=== PATIENT | male | born 1950 | race Caucasian/White ===

== ENCOUNTER 2019-04-24 15:08 | Emergency (ER) | payer MEDICARE, OTHER ==
[2019-04-24] MEDS ORDERED: SODIUM CHLORIDE 0.9% 1,000 ML IV ONE (16:01)
--- NOTE | 2019-04-24 16:17 | ED Physician Documentation ---
History of Present Illness - Stated complaint Stated Complaint: MALE /ABD PX - Chief complaint Chief Complaint: Abd Pain - History obtained from History obtained from: Patient - History of Present Illness Timing: Today Pain level max: 4 Pain level now: 3 - Additonal information Additional information: nausea, vomiting and diarrhea since last night. ate turkey sandwich last night. States nausea and vomiting has subsided. Had bright red blood in the stool. States has left-sided abdominal pain now. Nothing makes it better or worse. No fevers. No recent travel. No recent antibiotics. Has never had similar symptoms. Review of Systems Constitutional: denies: Fever, Chills Cardiac: denies: Chest pain / pressure Respiratory: denies: Cough GI: denies: Nausea, Vomiting, Diarrhea Skin: denies: Rash Musculoskeletal: denies: Neck pain, Back pain Neurologic: denies: Headache PD PAST MEDICAL HISTORY - Past Medical History Cardiovascular: Hypertension, High cholesterol Respiratory: COPD, Emphysema - Past Surgical History Past Surgical History: Yes - Present Medications Home Medications: Ambulatory Orders Medication Instructions Recorded Confirmed Amlodipine Besylate/Benazepril 1 cap PO DAILY 02/05/15 02/05/15 [Lotrel 5-20 mg Capsule] Aspirin [Aspir-Low] 81 mg PO DAILY 02/05/15 02/05/15 Cetirizine [ZyrTEC] 10 mg PO DAILY 02/05/15 02/05/15 Fluticasone/Salmeterol [Advair 2 puffs IH Q4HR PRN 02/05/15 02/05/15 100-50 Diskus] Tiotropium [Spiriva] 02/05/15 02/05/15 Amox/Clav 875/125 [Augmentin] 1 each PO Q12H #20 tablet 04/24/19 Ondansetron Odt [Zofran] 4 mg TL Q6H PRN #10 tablet 04/24/19 - Allergies Allergies/Adverse Reactions: Allergies Allergy/AdvReac Type Severity Reaction Status Date / Time acetaminophen [From Vicodin] Allergy Intermediate Itching Verified 04/24/19 15:13 hydrocodone bitartrate * Allergy Intermediate Itching Verified 04/24/19 15:13 [From Vicodin] - Social History Does the pt smoke?: Yes Smoking Status: Current every day smoker Does the pt drink ETOH?: Yes Does the pt have substance abuse?: No - Immunizations Immunizations are current?: Yes - POLST Patient has POLST: No PD ED PE NORMAL - Vitals Vital signs reviewed: Yes - General General: Alert and oriented X 3, No acute distress - HEENT HEENT: Moist mucous membranes - Neck Neck: Supple, no meningeal sign - Cardiac Cardiac: RRR - Respiratory Respiratory: No respiratory distress, Clear bilaterally - Abdomen Abdomen: Soft, Non distended, Other (Mild tenderness to palpation on the left side of the abdomen. No peritoneal signs.) - Male Male : Pt declined - Back Back: No spinal TTP - Derm Derm: Warm and dry - Extremities Extremities: No edema - Neuro Neuro: Alert and oriented X 3 - Psych Psych: Normal mood, Normal affect Results - Vitals Vitals: Vital Signs - 24 hr 04/24/19 04/24/19 15:13 17:18 Temperature 36.9 C Heart Rate 98 78 Respiratory 16 16 Rate Blood Pressure 138/83 H 149/80 H O2 Saturation 96 95 Oxygen O2 Source Room air - Labs Labs: Laboratory Tests 04/24/19 04/24/19 04/24/19 16:20 16:20 16:20 WBC 15.3 H RBC 5.37 Hgb 17.3 Hct 49.5 MCV 92.2 MCH 32.2 H MCHC 34.9 RDW 12.8 Plt Count 234 MPV 9.9 Neut # (Auto) 12.7 H Lymph # (Auto) 1.6 Moody # (Auto) 0.9 Eos # (Auto) 0.0 Baso # (Auto) 0.0 Absolute Nucleated RBC 0.00 Nucleated RBC % 0.0 PT INR APTT Sodium 138 Potassium 3.9 Chloride 103 Carbon Dioxide 25 Anion Gap 10.0 BUN 23 H Creatinine 0.9 Estimated GFR (MDRD) 84 L Glucose 103 H Calcium 9.3 Total Bilirubin 1.6 H AST 28 ALT 41 Alkaline Phosphatase 53 Total Protein 7.8 Albumin 4.8 Globulin 3.0 Albumin/Globulin Ratio 1.6 Lipase 26 Urine Color Urine Clarity Urine pH Ur Specific [place] Urine Protein Urine Glucose (UA) Urine Ketones Urine Occult Blood Urine Nitrite Urine Bilirubin Urine Urobilinogen Ur Leukocyte Esterase Ur Microscopic Review Urine Culture Comments Blood Type A POSITIVE Antibody Screen NEGATIVE 04/24/19 04/24/19 16:20 17:15 WBC RBC Hgb Hct MCV MCH MCHC RDW Plt Count MPV Neut # (Auto) Lymph # (Auto) Moody # (Auto) Eos # (Auto) Baso # (Auto) Absolute Nucleated RBC Nucleated RBC % PT 13.0 H INR 1.2 APTT 35.5 H Sodium Potassium Chloride Carbon Dioxide Anion Gap BUN Creatinine Estimated GFR (MDRD) Glucose Calcium Total Bilirubin AST ALT Alkaline Phosphatase Total Protein Albumin Globulin Albumin/Globulin Ratio Lipase Urine Color YELLOW Urine Clarity CLEAR Urine pH 6.0 Ur Specific [place] 1.010 Urine Protein NEGATIVE Urine Glucose (UA) NEGATIVE Urine Ketones 15 H Urine Occult Blood NEGATIVE Urine Nitrite NEGATIVE Urine Bilirubin NEGATIVE Urine Urobilinogen 0.2 (NORMAL) Ur Leukocyte Esterase NEGATIVE Ur Microscopic Review NOT INDICATED Urine Culture Comments NOT INDICATED Blood Type Antibody Screen - Rads (name of study) CT abdomen pelvis Radiology: Prelim report reviewed, EMP read contemporaneously, See rad report (1. Wall thickening with surrounding fat stranding involving the splenic flexure and the majority of the descending colon consistent with colitis. This may be of inflammatory or infectious etiology. 2. No other acute findings in the abdomen or pelvis. 3. Hepatic steatosis. ) PD MEDICAL DECISION MAKING - ED course Complexity details: reviewed results, re-evaluated patient, considered differential, d/w patient ED course: 69-year-old male appears to have colitis on his CT scan. Will place on antibiotics. He is well-appearing, nontoxic. Afebrile. No significant anemia. Patient counseled regarding signs and symptoms for which I believe and urgent re-evaluation would be necessary. Patient with good understanding of and agreement to plan and is comfortable going home at this time This document was made in part using voice recognition software. While efforts are made to proofread this document, sound alike and grammatical errors may occur. Departure - Departure Disposition: 01 Home, Self Care Clinical Impression: Colitis Condition: Good Instructions: ED Diverticulitis Follow-Up: your,doctor in 1 week [Other] Prescriptions: Amox/Clav 875/125 [Augmentin] 1 each PO Q12H #20 tablet Ondansetron Odt [Zofran] 4 mg TL Q6H PRN #10 tablet PRN Reason: Nausea / Vomiting Comments: You appear to have an infectious colitis today. Take all antibiotics until gone. Return if you worsen. You should start to improve over the next 24 to 48 hours. Discharge Date/Time: 04/24/19 18:02
[2019-04-24] MEDS ORDERED: IOVERSOL 320 100 ML VIAL IVP ONE ×2 (16:23→17:08)
[2019-04-24 16:26] LABS: BASOPHILS % (AUTO) 0.3 %; EOSINOPHILS % (AUTO) 0.1 %; HGB - HEMOGLOBIN 17.3 g/dL (14.0-18.0); LYMPHOCYTES # (AUTO) 1.6 10^3/uL (1.5-3.5); LYMPHOCYTES % (AUTO) 10.5 %; MEAN CORPUSCULAR HEMOGLOBIN 32.2 pg (27.0-31.0); MEAN CORPUSCULAR HGB CONC 34.9 g/dL (32.0-36.0); MEAN CORPUSCULAR VOLUME 92.2 fL (80.0-94.0); MEAN PLATELET VOLUME 9.9 fL (7.4-11.4); MONOCYTES # (AUTO) 0.9 10^3/uL (0.0-1.0); MONOCYTES % (AUTO) 5.9 %; NEUTROPHILS # (AUTO) 12.7 10^3/uL (1.5-6.6); NEUTROPHILS % (AUTO) 82.7 %; PLT - PLATELET COUNT 234 10^3/uL (130-450); RED BLOOD COUNT 5.37 10^6/uL (4.70-6.10); RED CELL DISTRIBUTION WIDTH 12.8 % (12.0-15.0); WHITE BLOOD COUNT 15.3 x10^3/uL (4.8-10.8)
[2019-04-24 16:32] LABS: INR 1.2 (0.8-1.2)
[2019-04-24 16:39] LABS: PARTIAL THROMBOPLASTIN TIME 35.5 secs (24.9-33.3)
[2019-04-24 16:40] LABS: ALBUMIN 4.8 g/dL (3.2-5.5); ALBUMIN/GLOBULIN RATIO 1.6 (1.0-2.2); BILIRUBIN,TOTAL 1.6 mg/dL (0.2-1.0); CALCIUM 9.3 mg/dL (8.5-10.3); CREATININE 0.9 mg/dL (0.6-1.2); TOTAL PROTEIN 7.8 g/dL (6.7-8.2)
[2019-04-24 17:19] VITALS: BP 149/80
[2019-04-24 17:25] LABS: BILIRUBIN,URINE NEGATIVE (NEGATIVE); GLUCOSE, URINE (UA) NEGATIVE (NEGATIVE); KETONES,URINE (UA) 15 mg/dL (NEGATIVE); LEUKOCYTE ESTERASE, URINE NEGATIVE (NEGATIVE); NITRITE,URINE NEGATIVE (NEGATIVE); OCCULT BLOOD,URINE NEGATIVE (NEGATIVE); PROTEIN,URINE NEGATIVE (NEGATIVE); UROBILINOGEN,URINE 0.2 (NORMAL) E.U./dL (NORMAL)
[2019-04-24 17:31] LABS: CLARITY,URINE CLEAR (CLEAR)
[2019-04-24] MEDS ORDERED: AMOX/CLAV 875 MG/125 MG TABLET PO STA (17:34)
--- NOTE | 2019-04-24 17:37 | CT Report ---
Reason: abd pain, bloody diarrhea Procedure Date: 04/24/2019 Accession Number: [id number] / [id number] Procedure: CT - Abdomen/Pelvis W CPT Code: Final Report FULL RESULT: EXAM: CT ABDOMEN AND PELVIS EXAM DATE: 04/24/2019 05:07 PM. CLINICAL HISTORY: Abd pain, bloody diarrhea. COMPARISONS: None. TECHNIQUE: Routine helical CT imaging was performed through the abdomen and pelvis. IV contrast: OPTI 320 90ML. Enteric contrast: No. Reconstructions: Coronal and sagittal. In accordance with CT protocol optimization, one or more of the following dose reduction techniques were utilized for this exam: automated exposure control, adjustment of mA and/or KV based on patient size, or use of iterative reconstructive technique. FINDINGS: Lung Bases: Unremarkable. Liver: Hepatic steatosis. No suspicious hepatic lesions. Gallbladder/Bile Ducts: Unremarkable. Spleen: Normal. Pancreas: Normal. Adrenal Glands: Normal. Kidneys: Normal. No masses or hydronephrosis. Peritoneal Cavity/Bowel: Normal caliber of the small bowel without evidence of obstruction. Wall thickening with surrounding fat stranding involving the splenic flexure and the majority of the descending colon. No evidence of perforation or abscess formation. Appendix: The appendix is well visualized and normal. Pelvic Organs: Normal. The bladder and visualized pelvic organs are within normal limits. Vasculature: Atherosclerotic plaquing of the abdominal aorta without aneurysmal dilatation. No retroperitoneal lymphadenopathy. Bones: No significant abnormality. Other: None. IMPRESSION: 1. Wall thickening with surrounding fat stranding involving the splenic flexure and the majority of the descending colon consistent with colitis. This may be of inflammatory or infectious etiology. 2. No other acute findings in the abdomen or pelvis. 3. Hepatic steatosis. [facility]
== END 2019-04-24 18:02 | disposition home or self-care (01) ==
LOC: ED 15:08
DX: K52.9 Noninfective gastroenteritis and colitis, unspecified (principal); K76.0 Fatty (change of) liver, not elsewhere classified; I10 Essential (primary) hypertension; Z79.82 Long term (current) use of aspirin; F17.200 Nicotine dependence, unspecified, uncomplicated
CPT/HCPCS: 36415; 74177; 80053; 81003; 83690; 85025; 85610; 85730; 86850; 86900; 86901; 96360; 99284; A9270; Q9967; 81001; 87086